=== PATIENT | female | born 2000 | race Caucasian/White ===

== ENCOUNTER 2022-01-26 22:32 | Emergency (ER) | payer OTHER, SELFPAY ==
[2022-01-26 22:48] VITALS: BP 124/59; PULSE 88; RESP 18; TEMP 36.6; O2SAT 98; BMI 24.4
--- NOTE | 2022-01-26 22:58 | DI.RAD.S_ITS ---
PROCEDURE: XR NASAL BONES MIN 3V INDICATIONS: eval for fracture TECHNIQUE: 3 views of the nasal bones acquired. COMPARISON: None. FINDINGS: Bones: No fractures or dislocations. Nasal septum is midline. Normal nasociliary nerve grooves are noted. Soft tissues: No suspicious soft tissue calcifications. IMPRESSION: No fracture identified Dictated by: George Medina M.D. on 01/26/2022 at 23:28 Approved by: George Medina M.D. on 01/26/2022 at 23:29
--- NOTE | 2022-01-26 23:45 | PC.NURSE ---
no active bleeding from nose, no obvious deformity
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
== END 2022-01-27 00:46 | disposition home or self-care (01) ==
PROVIDERS: Emergency Provider Emergency Medicine
DX: S09.92XA Unspecified injury of nose, initial encounter (principal); W50.0XXA Accidental hit or strike by another person, initial encounter
CPT/HCPCS: 70160; 99281; 99283

== ENCOUNTER 2024-07-01 11:16 | Emergency (ER) | payer OTHER, SELFPAY ==
[2024-07-01 11:30] VITALS: BP 118/62; PULSE 52; RESP 18; TEMP 36.1; O2SAT 100; BMI 23.0
--- NOTE | 2024-07-01 11:45 | PC.NURSE ---
Pt refusing EKG and requesting to leave. Pt VDC at 1144
== END 2024-07-01 11:46 | disposition left against medical advice (07) ==
PROVIDERS: Emergency Provider Emergency Medicine
CPT/HCPCS: 99281

== ENCOUNTER → 2025-02-18 08:52 | Outpatient (CLI) | payer BC, SELFPAY ==
[2025-02-18 11:06] LABS: HIV 1 & 2 Ab/Ag 4th Gen Combo NEGATIVE (NEGATIVE); Hep C Virus Ab w/Reflex Quant NEGATIVE s/c (NEGATIVE)
[2025-02-18 14:46] LABS: Urine Chlamydia NOT DETECTED; Urine N gonorrhoeae NOT DETECTED
[2025-02-19 04:40] LABS: RPR Screen Non Reactive (Non Reactive)
== END ==
PROVIDERS: PCP Family Medicine; Referring Provider Family Medicine; Visit Provider Family Medicine
DX: Z72.51 High risk heterosexual behavior (principal)
CPT/HCPCS: 36415; 86592; 86803; 87389; 87491; 87591

== ENCOUNTER → 2025-05-14 09:58 | Outpatient (CLI) | payer BC, SELFPAY ==
--- NOTE | 2025-05-14 09:59 | DI.RAD.S_ITS ---
PROCEDURE: XR CHEST 2V INDICATIONS: Positive PPD/need tb interpritation TECHNIQUE: 2 views of the chest were acquired. COMPARISON: None. FINDINGS: Surgical changes and devices: None. Lungs and pleura: Lungs are clear. No pleural effusions or pneumothorax. Mediastinum: Mediastinal contours are normal. Heart size is normal. Bones and chest wall: No suspicious bony abnormalities. Soft tissues appear unremarkable. IMPRESSION: No evidence of active tuberculosis. Dictated by: Gold Duffy M.D. on 05/14/2025 at 10:18 Approved by: Gold Duffy M.D. on 05/14/2025 at 10:19
== END ==
PROVIDERS: PCP Family Medicine; Referring Provider Family Medicine; Visit Provider Family Medicine
DX: R76.11 Nonspecific reaction to tuberculin skin test without active tuberculosis (principal)
CPT/HCPCS: 71046

== ENCOUNTER → 2025-09-16 15:36 | Outpatient (CLI) | payer OTHER, SELFPAY ==
--- NOTE | 2025-09-16 15:38 | DI.RAD.S_ITS ---
PROCEDURE: XR CHEST 2V INDICATIONS: cough TECHNIQUE: 2 views of the chest were acquired. COMPARISON: [facility], CR, XR CHEST 2V, 05/14/2025, 9:54. FINDINGS: Surgical changes and devices: None. Lungs and pleura: Lungs are clear. No pleural effusions or pneumothorax. Mediastinum: Mediastinal contours are normal. Heart size is normal. Bones and chest wall: No suspicious bony abnormalities. Soft tissues appear unremarkable. IMPRESSION: No acute pulmonary process. Dictated by: Mary Jane Barbosa M.D. on 09/16/2025 at 16:38 Approved by: Mary Jane Barbosa M.D. on 09/16/2025 at 16:38
== END ==
LOC: RAD 15:37
PROVIDERS: PCP Family Medicine; Referring Provider Nurse Practitioner Family; Visit Provider Nurse Practitioner Family
DX: R05.9 Cough, unspecified (principal)
CPT/HCPCS: 71046